=== PATIENT | female | born 1940 | race Caucasian/White ===

== ENCOUNTER 2020-04-14 08:33 | Outpatient (REF) | payer MEDICARE, OTHER, SELFPAY ==
--- NOTE | 2020-04-14 08:36 | XR_ITS ---
EXAMINATION: XR SHOULDER, RIGHT CLINICAL INFORMATION: Pain and right shoulder. COMPARISON: None. TECHNIQUE: 3 views of the right shoulder. FINDINGS: There is mild loss of glenohumeral and AC joint space. No bony erosive changes seen. There is mild cephalic migration of humeral head in relation to glenoid suspicious of rotator cuff tear or degeneration. The soft tissues are normal. XR/XR shoulder RT min 2V IMPRESSION: Degenerative arthritic changes glenohumeral joint and right AC joint. No visible acute fracture or dislocation seen. Cephalic migration of humeral head in relation to glenoid likely secondary to rotator cuff degeneration or tear.
== END 2020-04-14 08:34 | disposition home or self-care (01) ==
LOC: HO.HOSX 08:33
PROVIDERS: PCP Internal Medicine; Referring Provider Internal Medicine; Visit Provider Orthopaedic Surgery
DX: Z13.89 Encounter for screening for other disorder (principal)
CPT/HCPCS: 73030; 99212

== ENCOUNTER 2020-04-14 10:20 | Outpatient (REF) | payer MEDICARE, OTHER, SELFPAY ==
[2020-04-14 14:56] LABS: Estimated Average Glucose 169 mg/dL; Hemoglobin A1c % 7.5 %
== END 2020-04-14 10:21 | disposition home or self-care (01) ==
LOC: HO.10HDL 10:20
PROVIDERS: Visit Provider Orthopaedic Surgery
DX: Z01.812 Encounter for preprocedural laboratory examination (principal)
CPT/HCPCS: 73030; 83036; 99212

== ENCOUNTER 2020-05-16 09:32 | Outpatient (REF) | payer MEDICARE, OTHER, SELFPAY ==
--- NOTE | 2020-05-16 09:34 | CT_ITS ---
EXAMINATION: CT SHOULDER WITHOUT CONTRAST, RIGHT CLINICAL INFORMATION: Right shoulder pain. Other specific arthropathy, not elsewhere classified, unspecified. COMPARISON: Radiographs of the shoulder from 08/11/2018 and 04/14/2020. TECHNIQUE: Noncontrast multidetector CT imaging examination of the right shoulder was performed. Axial images are presented at 0.6 mm and 3 mm slice thickness. Coronal and sagittal reformatted images were generated and reviewed. This CT examination was performed using dose optimization techniques as appropriate, variously including the following: *Automated exposure control *Adjustment of mA and/or kV according to patient size (this includes techniques or standardized protocols for targeted exams where dose is matched to indication/reason for exam; i.e. extremities or head) *Use of iterative reconstruction technique DLP: 355 mGy-cm FINDINGS: The distal right clavicle chronically has a truncated appearance. Also, there is chronic flattening along the undersurface of the adjacent acromion. Query if there is remote history of Pawan procedure and acromioplasty. There appears to be an old type B os acromiale, which is well-corticated, and has adjacent small well-corticated fragment, as well. No acromial fracture. The cystlike lucency within the acromion and os acromiale is likely secondary to chronic abutment of the humeral head along the undersurface of the acromion. The flattening and concavity of the acromial undersurface could be secondary to prior surgery and/or chronic acromiohumeral abutment, as well. On these images acquired with the patient at rest, the acromiohumeral distance is abnormal, measuring less than 0.4 cm laterally, indicative of chronic rotator cuff tear. On the axial images, the humeral head appears to be well centered over the glenoid whereas on coronal images, superior migration of the humeral head is noted from the chronic deficiency of the rotator cuff. No humeral or glenoid fracture. Small glenohumeral joint effusion is present. Calcium deposition (likely calcium pyrophosphate dihydrate crystal deposition) within the glenohumeral joint. Marginal osteophytes and subchondral cysts of the glenohumeral joint. The long head of the biceps tendon appears to be properly positioned in the bicipital groove. Severe atrophy and fatty replacement of subscapularis, supraspinatus and infraspinatus muscles, compatible with sequela of chronic cuff tears and disuse of muscles. The myotendinous junctions of the supraspinatus and infraspinatus are at least 2 cm more lateral in position than expected, indicative of chronically retracted cuff tears. The visualized right lung is normal. No evidence of right breast mass or right axillary lymphadenopathy. CT/CT shoulder RT wo con IMPRESSION: * No acute osseous injury at the right shoulder. * The distal right clavicle is truncated, and acromion has a relatively flat and concave undersurface. Query if there is remote history of Pawan procedure and acromioplasty. Alternatively, the deformities could be secondary to chronic, massive rotator cuff tear with chronic abutment of the humeral head along the undersurface of the bones. The chronic cuff tears are associated with severe atrophy and fatty replacement of rotator cuff muscles. * Calcium deposition (likely calcium pyrophosphate dihydrate crystal deposition) and small effusion of the moderately degenerated glenohumeral joint.
== END 2020-05-16 09:33 | disposition home or self-care (01) ==
LOC: HO.CT 09:32
PROVIDERS: PCP Internal Medicine; Visit Provider Physician Assistant
DX: M12.819 Other specific arthropathies, not elsewhere classified, unspecified shoulder (principal)
CPT/HCPCS: 73200

== ENCOUNTER → 2020-06-30 12:30 | Outpatient (BNVA) | payer MEDICARE, OTHER, SELFPAY | PROVIDERS: PCP Internal Medicine; Visit Provider Physician Assistant | DX: M12.819 Other specific arthropathies, not elsewhere classified, unspecified shoulder (principal) | CPT/HCPCS: 99212 ==

== ENCOUNTER 2020-07-05 08:03 | Inpatient (IN) | payer MEDICARE, OTHER, SELFPAY ==
--- NOTE | 2020-06-20 | ECG_ITS ---
Test Reason : PREOP Blood Pressure : / mmHG Vent. Rate : 078 BPM Atrial Rate : 078 BPM P-R Int : 158 ms QRS Dur : 070 ms QT Int : 372 ms P-R-T Axes : 054 -04 047 degrees QTc Int : 424 ms Normal sinus rhythm Inferior infarct , age undetermined Abnormal ECG When compared with ECG of 08-SEP-2018 10:47, No significant change was found Referred By: Claudia Marrero Electronically Signed By:Matti Poole
[2020-06-20 11:57] VITALS: BP 123/60; PULSE 80; RESP 18; O2SAT 97; BMI 27.1
--- NOTE | 2020-06-20 12:19 | P.CONAN_ITS ---
HPI - Anesthesia Eval Consult details Narrative: 80yo F for R Total Shoulder Repair PCP cleared Cardiac cleared [facility] Past Medical History Medical History (Updated 06/20/20 @ 12:17 by Sara Odonnell) Arthritis Cancer Diabetes Elevated cholesterol GERD (gastroesophageal reflux disease) History of restless legs syndrome HTN (hypertension) Hx of radiation therapy Right shoulder pain Rotator cuff arthropathy Sleep apnea Type 2 diabetes mellitus Family History Family History Mother No problems noted. Father No problems noted. Family history of problems with anesthesia: No Surgical History Surgical History (Updated 06/20/20 @ 12:17 by Sara Odonnell) H/O colonoscopy History of prior ablation treatment History of total knee replacement (~2006) Hx of breast lump removal Hx of foot surgery Hx of knee surgery Hx of rotator cuff surgery Hx of tonsillectomy Hx of total shoulder replacement Status post total shoulder arthroplasty History of Problems with Anesthesia: No Social History Social History (Updated 06/20/20 @ 12:43 by Sara Odonnell) Alcohol intake: never Smoking Status: Former smoker Packs Per Day: 1 Cigarettes Per Day: 20.0 Years Smoked: 25 Current occupational status: retired Current occupation: Right Handed Narrative Narrative: No recent ilness No CP/SOB with >4mets Per cardiac ov note 04/2020: pt stable, no anginal symptoms with remaining active Meds Allergies Allergy/AdvReac Type Severity Reaction Status Date / Time lisinopril [LISINOPRIL] Allergy Severe ANGIOEDEMA Verified 06/20/20 12:31 codeine [CODEINE] Allergy Intermediate ITCHY Verified 06/20/20 12:31 hydromorphone [HYDROMORPHONE] Allergy Intermediate ITCHING Verified 06/20/20 12: 31 oxycodone [OXYCODONE] Allergy Intermediate ITCHING Verified 06/20/20 12:31 propoxyphene [PROPOXYPHENE] Allergy Intermediate ITCHING Verified 06/20/20 12:31 sulfamethoxazole Allergy Intermediate RENAL Verified 06/20/20 12:31 [From BACTRIM] INSUFFICIENCY trimethoprim [From BACTRIM] Allergy Intermediate RENAL Verified 06/20/20 12:31 INSUFFICIENCY Propoxyphene HCl Allergy Intermediate Itching Uncoded 06/20/20 12:31 Home Medications Medication Instructions Recorded Confirmed Type acebutolol 200 mg capsule 200 mg PO QAM 03/16/20 06/20/20 History chlorthalidone 25 mg tablet 25 mg PO QAM 03/16/20 06/20/20 History famotidine 40 mg tablet 40 mg PO BEDTIME 03/16/20 06/20/20 History gabapentin 300 mg capsule 600 mg PO TID 03/16/20 06/20/20 History glipizide 5 mg tablet, extended 5 mg PO QAM 03/16/20 06/20/20 History release 24 hr metformin 500 mg tablet,extended 1,000 mg PO BID 03/16/20 06/20/20 History release 24 hr omeprazole 20 mg capsule,delayed 20 mg PO BID 03/16/20 06/20/20 History release ropinirole 1 mg tablet 1 mg PO 5XD 03/16/20 06/20/20 History trazodone 50 mg tablet 75 mg PO BEDTIME 03/16/20 06/20/20 History calcium carbonate-vitamin D2 1 tab PO DAILY 06/20/20 06/20/20 History [Calcium + Vitamin D] cholecalciferol (vitamin D3) 25 mcg PO DAILY 06/20/20 06/20/20 History [Vitamin D3] magnesium 400 mg PO DAILY 06/20/20 06/20/20 History multivitamin-iron (hematinic) 1 tab PO DAILY 06/20/20 06/20/20 History [Spectravite] triamcinolone acetonide 1 appl TOPICAL BID PRN 06/20/20 06/20/20 History Exam Exam Date and Time: June 20, 2020 1219 Pertinent Lab Results Pertinent Lab Results: Laboratory Tests 04/14/20 10:30 Hemoglobin A1c % 7.5 Laboratory Tests 06/20/20 06/20/20 06/20/20 13:25 13:25 13:25 WBC 8.7 Hgb 12.9 Hct 41.4 Plt Count 305 Sodium 139 Potassium 4.2 Chloride 98 Carbon Dioxide 26 Anion Gap 19 BUN 27 H Creatinine 1.13 Blood Type A Positive Antibody Screen NEGATIVE Narrative Narrative: EKG 06/20/20 Normal sinus rhythm Inferior infarct , age undetermined Abnormal ECG When compared with ECG of 08-SEP-2018 10:47, No significant change was found ECHO 2018 per Cardiac note: Nml LV sys function, mild DD, mild asymetrical basal septal hypertrophy, 1.2cm; mild pulm htn at 30-35mmHg Airway Neck ROM: Full Loose/Missing/Broken Teeth: Yes (Molars pulled) Heart: RRR +M, Lungs: CTAB Assessment and Plan Assessment Anesthesia Assessment: Anesthesia Plan Discussed and PAT Visit
[2020-06-20 13:57] LABS: MANUAL DIFF FLAG NO
[2020-06-20 13:59] LABS: Basophils Percent Auto 0.3 % (0-2); Eosinophils Absolute Auto 0.1 X10*3/uL (0.0-0.4); Eosinophils Percent Auto 1.6 % (0-4); Hematocrit 41.4 % (37-47); Hemoglobin 12.9 g/dl (12.0-16.0); Imm Gran Abs Auto 0.03 X10*3/uL (0.00-0.03); Imm Gran Pct Auto 0.3 % (0.0-0.4); Lymphocytes Absolute Auto 1.8 X10*3/uL (1.2-4.9); Lymphocytes Percent Auto 20.4 % (20-40); Mean Corpuscular HGB Conc 31.2 g/dl (31.0-35.0); Mean Platelet Volume 10.2 fL (9.4-12.3); Monocytes Absolute Auto 0.5 X10*3/uL (0.1-1.2); Neutrophils Absolute Auto 6.2 X10*3/uL (2.0-8.3); Neutrophils Percent Auto 71.4 % (45-73); Platelet Count 305 X10*3/uL (160-400); Red Cell Distribution Width 13.2 % (11.0-16.0); White Blood Count 8.7 X10*3/uL (4.8-10.8)
[2020-06-20 14:29] LABS: Anion Gap 19 (12-20); Blood Urea Nitrogen 27 mg/dL (9-16); Carbon Dioxide 26 mmol/L (22-29); Chloride 98 mmol/L (96-108); Creatinine Clr Calc Pharmacy 39.3; Estimated Glomerular Filt Rate 46; Potassium 4.2 mmol/l (3.3-5.1); Sodium 139 mmol/L (135-145)
[2020-06-20 15:08] LABS: MRSA Nasal PCR NEGATIVE (Negative); SA Nasal PCR POSITIVE (Negative)
--- NOTE | 2020-07-04 13:17 | HO.ANESPROP2 ---
Documented by User: Ruth Ann Minaney 07/04/20 13:20 HPI - Anesthesia Eval Consult details Narrative: 80yo F for R Total Shoulder Repair PCP cleared Cardiac cleared [facility] Past Medical History Medical History Arthritis Cancer Diabetes Elevated cholesterol GERD (gastroesophageal reflux disease) History of restless legs syndrome HTN (hypertension) Hx of radiation therapy Right shoulder pain Rotator cuff arthropathy Sleep apnea Type 2 diabetes mellitus Family History Family History Mother No problems noted. Father No problems noted. Surgical History Surgical History H/O colonoscopy History of prior ablation treatment History of total knee replacement (~2006) Hx of breast lump removal Hx of foot surgery Hx of knee surgery Hx of rotator cuff surgery Hx of tonsillectomy Hx of total shoulder replacement Status post total shoulder arthroplasty Social History Social History Are you a primary youth care specialist to a significant other at home: No Do you presently have visiting nurse or other home services: No Alcohol intake: never Smoking Status: Former smoker Packs Per Day: 1 Cigarettes Per Day: 20.0 Years Smoked: 25 Smoked in Last 30 Days: No Smoking Quit Date: 1988 Use of substances other than those prescribed or required for medical reasons: No Have you been hit, kicked, punched, or otherwise hurt by someone within the past year? If so, by whom?: No Advance Directives Information Provided: No Recently lost weight without trying: No Current occupational status: retired Current occupation: Right Handed Narrative Narrative: No recent ilness No CP/SOB with >4mets Per cardiac ov note 04/2020: pt stable, no anginal symptoms with remaining active Meds Allergies Allergy/AdvReac Type Severity Reaction Status Date / Time lisinopril [LISINOPRIL] Allergy Severe ANGIOEDEMA Verified 07/05/20 06:52 codeine [CODEINE] Allergy Intermediate ITCHY Verified 07/05/20 06:52 hydromorphone [HYDROMORPHONE] Allergy Intermediate ITCHING Verified 07/05/20 06:52 oxycodone [OXYCODONE] Allergy Intermediate ITCHING Verified 07/05/20 06:52 propoxyphene [PROPOXYPHENE] Allergy Intermediate ITCHING Verified 07/05/20 06:52 sulfamethoxazole Allergy Intermediate RENAL Verified 07/05/20 06:52 [From BACTRIM] INSUFFICIENCY trimethoprim [From BACTRIM] Allergy Intermediate RENAL Verified 07/05/20 06:52 INSUFFICIENCY Propoxyphene HCl Allergy Intermediate Itching Uncoded 06/20/20 12:31 Home Medications Medication Instructions Recorded Confirmed Type acebutolol 200 mg capsule 200 mg PO QAM 03/16/20 06/20/20 History chlorthalidone 25 mg tablet 25 mg PO QAM 03/16/20 06/20/20 History famotidine 40 mg tablet 40 mg PO BEDTIME 03/16/20 06/20/20 History gabapentin 300 mg capsule 600 mg PO TID 03/16/20 06/20/20 History glipizide 5 mg tablet, extended 5 mg PO QAM 03/16/20 06/20/20 History release 24 hr metformin 500 mg tablet,extended 500 mg PO QAM 03/16/20 07/05/20 History release 24 hr omeprazole 20 mg capsule,delayed 20 mg PO BID 03/16/20 06/20/20 History release ropinirole 1 mg tablet 1 mg PO 5XD 03/16/20 06/20/20 History trazodone 50 mg tablet 75 mg PO BEDTIME 03/16/20 06/20/20 History cholecalciferol (vitamin D3) 25 mcg PO DAILY 06/20/20 06/20/20 History [Vitamin D3] magnesium 400 mg PO DAILY 06/20/20 06/20/20 History multivitamin-iron (hematinic) 1 tab PO DAILY 06/20/20 06/20/20 History [Spectravite] triamcinolone acetonide 1 appl TOPICAL BID PRN 06/20/20 06/20/20 History calcium carbonate-vitamin D3 1 tab PO DAILY 07/05/20 07/05/20 History [Calcium + D] metformin 1,000 mg PO QPM 07/05/20 07/05/20 History Exam Exam Date and Time: 06/20/2020 at [facility] Height,Weight and Vital Signs: Height 5 ft 5 in Weight 74 kg Last Vital Signs Pulse 80 06/20/20 11:57 Resp 18 06/20/20 11:57 BP 123/60 06/20/20 11:57 Pulse Ox 97 06/20/20 11:57 Pertinent Lab Results Pertinent Lab Results: Laboratory Tests 06/20/20 06/20/20 06/20/20 12:45 13:25 13:25 WBC 8.7 RBC 4.60 Hgb 12.9 Hct 41.4 MCV 90.0 MCH 28.0 MCHC 31.2 RDW 13.2 Plt Count 305 MPV 10.2 Immature Gran % (Auto) 0.3 Neut % (Auto) 71.4 Lymph % (Auto) 20.4 [place] % (Auto) 6.0 Eos % (Auto) 1.6 Baso % (Auto) 0.3 Lymph # (Auto) 1.8 [place] # (Auto) 0.5 Eos # (Auto) 0.1 Baso # (Auto) 0.0 Abs Immat Gran (auto) 0.03 Absolute Neuts (auto) 6.2 Absolute Nucleated RBC 0.000 Nucleated RBC % (auto) 0.0 Sodium 139 Potassium 4.2 Chloride 98 Carbon Dioxide 26 Anion Gap 19 BUN 27 H Creatinine 1.13 Estim Creat Clear Calc 39.3 Estimated GFR 46 Nasal Screen MRSA (PCR) NEGATIVE Nasal S. aureus Screen POSITIVE A Nasal MRSA/S.aureus Interp SEE NOTE Blood Type Antibody Screen 06/20/20 13:25 WBC RBC Hgb Hct MCV MCH MCHC RDW Plt Count MPV Immature Gran % (Auto) Neut % (Auto) Lymph % (Auto) [place] % (Auto) Eos % (Auto) Baso % (Auto) Lymph # (Auto) [place] # (Auto) Eos # (Auto) Baso # (Auto) Abs Immat Gran (auto) Absolute Neuts (auto) Absolute Nucleated RBC Nucleated RBC % (auto) Sodium Potassium Chloride Carbon Dioxide Anion Gap BUN Creatinine Estim Creat Clear Calc Estimated GFR Nasal Screen MRSA (PCR) Nasal S. aureus Screen Nasal MRSA/S.aureus Interp Blood Type A Positive Antibody Screen NEGATIVE Narrative Narrative: EKG 06/20/20 Normal sinus rhythm Inferior infarct , age undetermined Abnormal ECG When compared with ECG of 08-SEP-2018 10:47, No significant change was found ECHO 2018 per Cardiac note: Nml LV sys function, mild DD, mild asymetrical basal septal hypertrophy, 1.2cm; mild pulm htn at 30-35mmHg Airway Neck ROM: Full Loose/Missing/Broken Teeth: Yes (molars pulled) Heart: RRR +M Lungs: CTAB Assessment and Plan Assessment Anesthesia Assessment: Anesthesia Plan Discussed and PAT Visit Documented by User: Ellis Castro MD 07/05/20 10:21 [facility] Past Medical History Medical History Arthritis Cancer Diabetes Elevated cholesterol GERD (gastroesophageal reflux disease) History of restless legs syndrome HTN (hypertension) Hx of radiation therapy Right shoulder pain Rotator cuff arthropathy Sleep apnea Type 2 diabetes mellitus Family History Family History Mother No problems noted. Father No problems noted. Surgical History Surgical History H/O colonoscopy History of prior ablation treatment History of total knee replacement (~2006) Hx of breast lump removal Hx of foot surgery Hx of knee surgery Hx of rotator cuff surgery Hx of tonsillectomy Hx of total shoulder replacement Status post total shoulder arthroplasty Social History Social History Are you a primary youth care specialist to a significant other at home: No Do you presently have visiting nurse or other home services: No Alcohol intake: never Smoking Status: Former smoker Packs Per Day: 1 Cigarettes Per Day: 20.0 Years Smoked: 25 Smoked in Last 30 Days: No Smoking Quit Date: 1988 Use of substances other than those prescribed or required for medical reasons: No Have you been hit, kicked, punched, or otherwise hurt by someone within the past year? If so, by whom?: No Advance Directives Information Provided: No Recently lost weight without trying: No Current occupational status: retired Current occupation: Right Handed Meds Allergies Allergy/AdvReac Type Severity Reaction Status Date / Time lisinopril [LISINOPRIL] Allergy Severe ANGIOEDEMA Verified 07/05/20 06:52 codeine [CODEINE] Allergy Intermediate ITCHY Verified 07/05/20 06:52 hydromorphone [HYDROMORPHONE] Allergy Intermediate ITCHING Verified 07/05/20 06:52 oxycodone [OXYCODONE] Allergy Intermediate ITCHING Verified 07/05/20 06:52 propoxyphene [PROPOXYPHENE] Allergy Intermediate ITCHING Verified 07/05/20 06:52 sulfamethoxazole Allergy Intermediate RENAL Verified 07/05/20 06:52 [From BACTRIM] INSUFFICIENCY trimethoprim [From BACTRIM] Allergy Intermediate RENAL Verified 07/05/20 06:52 INSUFFICIENCY Propoxyphene HCl Allergy Intermediate Itching Uncoded 06/20/20 12:31 Home Medications Medication Instructions Recorded Confirmed Type acebutolol 200 mg capsule 200 mg PO QAM 03/16/20 06/20/20 History chlorthalidone 25 mg tablet 25 mg PO QAM 03/16/20 06/20/20 History famotidine 40 mg tablet 40 mg PO BEDTIME 03/16/20 06/20/20 History gabapentin 300 mg capsule 600 mg PO TID 03/16/20 06/20/20 History glipizide 5 mg tablet, extended 5 mg PO QAM 03/16/20 06/20/20 History release 24 hr metformin 500 mg tablet,extended 500 mg PO QAM 03/16/20 07/05/20 History release 24 hr omeprazole 20 mg capsule,delayed 20 mg PO BID 03/16/20 06/20/20 History release ropinirole 1 mg tablet 1 mg PO 5XD 03/16/20 06/20/20 History trazodone 50 mg tablet 75 mg PO BEDTIME 03/16/20 06/20/20 History cholecalciferol (vitamin D3) 25 mcg PO DAILY 06/20/20 06/20/20 History [Vitamin D3] magnesium 400 mg PO DAILY 06/20/20 06/20/20 History multivitamin-iron (hematinic) 1 tab PO DAILY 06/20/20 06/20/20 History [Spectravite] triamcinolone acetonide 1 appl TOPICAL BID PRN 06/20/20 06/20/20 History calcium carbonate-vitamin D3 1 tab PO DAILY 07/05/20 07/05/20 History [Calcium + D] metformin 1,000 mg PO QPM 07/05/20 07/05/20 History Exam Airway Mallampati Class: III TM Dist: >3cm Neck ROM: Full Loose/Missing/Broken Teeth: No Heart: RRR, PVCs Lungs: NL Other: AO Assessment and Plan Assessment Anesthesia Assessment: Anesthesia Plan Discussed and Chart Reviewed Final Anesthetic Review NPO: Yes ASA Class: III Final Preanesthetic Review: No Changes in Pt Med Stat, Meds/Allgs Chart Reviewed, Consent Obtained/Reviewed and Anes Risks/Benef Reviewed Patient Risk: Intermediate Procedure Risk: Intermediate Anesthetic Plan Anesthetic Plan: GA and Regional Block Disposition: Standard PACU
[2020-07-05] VITALS (15 sets, daily range): BP systolic 119–157; BP diastolic 61–93; PULSE 71–100; RESP 16–19; TEMP 36.2–37.1; O2SAT 90–99
[2020-07-05] MEDS: Gabapentin 600 MG TABLET PO (06:26)
[2020-07-05 06:49] LABS: COVID-19 Test Negative (Negative)
[2020-07-05] MEDS: Lactated Ringers 1,000 ML 100 ML IVCONT (07:10)
[2020-07-05] MEDS: ceFAZolin Sodium/Dextrose,Iso 2 GM/50 ML PIGGYBACK IV ×2 (08:05→13:35)
[2020-07-05 08:26] LABS: Glucose, Whole Blood 179 mg/dL (60-115)
--- NOTE | 2020-07-05 09:55 | MHC.SHP ---
Pre-Procedural Eval Section A The patient is an INPATIENT: No Changes since office visit: Yes Patient answered all questions; No Cold of Flu in the past 2 weeks, No New Medical Problems and No Changes in Medication The History & Physical has been completed within 30 days and I have reviewed it.: Yes Section B Chief Complaint: right total shoulder arthroplasty Allergies: Allergies Allergy/AdvReac Type Severity Reaction Status Date / Time lisinopril [LISINOPRIL] Allergy Severe ANGIOEDEMA Verified 07/05/20 06:52 codeine [CODEINE] Allergy Intermediate ITCHY Verified 07/05/20 06:52 hydromorphone [HYDROMORPHONE] Allergy Intermediate ITCHING Verified 07/05/20 06:52 oxycodone [OXYCODONE] Allergy Intermediate ITCHING Verified 07/05/20 06:52 propoxyphene [PROPOXYPHENE] Allergy Intermediate ITCHING Verified 07/05/20 06:52 sulfamethoxazole Allergy Intermediate RENAL Verified 07/05/20 06:52 [From BACTRIM] INSUFFICIENCY trimethoprim [From BACTRIM] Allergy Intermediate RENAL Verified 07/05/20 06:52 INSUFFICIENCY Propoxyphene HCl Allergy Intermediate Itching Uncoded 06/20/20 12:31 Plan I have reviewed the history and physical and performed a pertinent physical examination on my patient. No changes have occurred unless specified.
--- NOTE | 2020-07-05 09:55 | PM.OP ---
Brief Operative Note Date of Service: 07/05/20 Pre-op diagnosis: right shoulder rtc arthropathy Post-op diagnosis: same Procedure: reverse TSA right shoulder Implants: Tournier 25 mm baseplate with 15deg sup wedge and standard 36 mm glenosphere. 2B standard humeral stem with standard reversed insert- 6mm Surgeon: Brady Zazueta MD Anesthesia: GETA and local Data Sciences Director: Claudia Marrero Estimated blood loss (mL): 150 Tourniquet time (min): 0 IV fluids (mL): 1,500 Urine output (mL): 0 Pathology: other (humeral head) Condition: stable Disposition: PACU
--- NOTE | 2020-07-05 11:26 | P.CONIM_ITS ---
History of Present Illness Data of Consult Service Date: 07/05/20 Requesting physician: Brady Zazueta Primary Care Provider: Rudy Hinkle MD [facility] Reason for consult: Medical Management 80 year old women with history of diabetes, hypertension admitted to orthopedic surgery service and is status post shoulder arthroplasty. Surgery was unremarkable, Vital signs stable. Pain is welll controlled. She has no acute medical complaints Review of Systems Review of Systems: Denies any recent fever chills or decrease in appetite respiratory denies any shortness of breath coverage production cardiovascular NO chest pain gastrointestinal denies any dysphagia abdominal pain nausea vomiting or diarr hea genitourinary denies any dysuria frequency or hematuria musculoskeletal Right shoulder post op neuropsych denies any weakness or seizures all other systems reviewed are negative [facility] Medical History Arthritis Cancer Diabetes Elevated cholesterol GERD (gastroesophageal reflux disease) History of restless legs syndrome HTN (hypertension) Hx of radiation therapy Right shoulder pain Rotator cuff arthropathy Sleep apnea Type 2 diabetes mellitus Family History Mother No problems noted. Father No problems noted. Surgical History H/O colonoscopy History of prior ablation treatment History of total knee replacement (~2006) Hx of breast lump removal Hx of foot surgery Hx of knee surgery Hx of rotator cuff surgery Hx of tonsillectomy Hx of total shoulder replacement Status post total shoulder arthroplasty Social History Are you a primary caregiver services home to a significant other at home: No Do you presently have visiting nurse or other home services: No Alcohol intake: never Smoking Status: Former smoker Packs Per Day: 1 Cigarettes Per Day: 20.0 Years Smoked: 25 Smoked in Last 30 Days: No Smoking Quit Date: 1988 Use of substances other than those prescribed or required for medical reasons: No Have you been hit, kicked, punched, or otherwise hurt by someone within the past year? If so, by whom?: No Advance Directives Information Provided: No Recently lost weight without trying: No Current occupational status: retired Current occupation: Right Handed Meds Allergies Allergy/AdvReac Type Severity Reaction Status Date / Time lisinopril [LISINOPRIL] Allergy Severe ANGIOEDEMA Verified 07/05/20 06:52 codeine [CODEINE] Allergy Intermediate ITCHY Verified 07/05/20 06:52 hydromorphone [HYDROMORPHONE] Allergy Intermediate ITCHING Verified 07/05/20 06:52 oxycodone [OXYCODONE] Allergy Intermediate ITCHING Verified 07/05/20 06:52 propoxyphene [PROPOXYPHENE] Allergy Intermediate ITCHING Verified 07/05/20 06:52 sulfamethoxazole Allergy Intermediate RENAL Verified 07/05/20 06:52 [From BACTRIM] INSUFFICIENCY trimethoprim [From BACTRIM] Allergy Intermediate RENAL Verified 07/05/20 06:52 INSUFFICIENCY Propoxyphene HCl Allergy Intermediate Itching Uncoded 06/20/20 12:31 Home Medications Medication Instructions Recorded Confirmed Type acebutolol 200 mg capsule 200 mg PO QAM 03/16/20 06/20/20 History chlorthalidone 25 mg tablet 25 mg PO QAM 03/16/20 06/20/20 History famotidine 40 mg tablet 40 mg PO BEDTIME 03/16/20 06/20/20 History gabapentin 300 mg capsule 600 mg PO TID 03/16/20 06/20/20 History glipizide 5 mg tablet, extended 5 mg PO QAM 03/16/20 06/20/20 History release 24 hr metformin 500 mg tablet,extended 500 mg PO QAM 03/16/20 07/05/20 History release 24 hr omeprazole 20 mg capsule,delayed 20 mg PO BID 03/16/20 06/20/20 History release ropinirole 1 mg tablet 1 mg PO 5XD 03/16/20 06/20/20 History trazodone 50 mg tablet 75 mg PO BEDTIME 03/16/20 06/20/20 History cholecalciferol (vitamin D3) 25 mcg PO DAILY 06/20/20 06/20/20 History [Vitamin D3] magnesium 400 mg PO DAILY 06/20/20 06/20/20 History multivitamin-iron (hematinic) 1 tab PO DAILY 06/20/20 06/20/20 History [Spectravite] triamcinolone acetonide 1 appl TOPICAL BID PRN 06/20/20 06/20/20 History calcium carbonate-vitamin D3 1 tab PO DAILY 07/05/20 07/05/20 History [Calcium + D] metformin 1,000 mg PO QPM 07/05/20 07/05/20 History Physical Exam Vital Signs and Narrative: Vital Signs: Last Vital Signs Temp 97.2 F 07/05/20 10:56 Pulse 76 07/05/20 11:12 Resp 16 07/05/20 11:12 BP 136/67 07/05/20 11:12 Pulse Ox 98 07/05/20 11:12 Body Mass Index 27.1 Appearing in no acute distress head is normocephalic atraumatic eyes pupils are PERRLA sclera is anicteric mouth throat mucous membranes are intact and moist neck is supple no lymphadenopathy, no JVD noted lung sounds are clear to auscultation heart regular rate rhythm, clear S1, S2 positive bowel sounds, abdomen is soft, nontender neuro patient is alert x3, no focal deficits MSK Right shoulder brace, dressing clean, dry and intact Results Labs CBC and Chem 7: 06/20/20 13:25 06/20/20 13:25 Labs: Laboratory Results - last 24 hr 07/05/20 07/05/20 06:00 06:23 POC Glucose 179 H COVID-19 (ELIGIO) Negative COVID-19 Clin Com See Note Assessment and Plan (1) Rotator cuff arthropathy: Status: Acute 80-year-old woman admitted by Orthopedic surgery team and is status post right shoulder arthroplasty. Right shoulder arthroplasty. Management as per surgical team. Pain management. Diabetes mellitus, sliding scale, ADA diet, glipizise Hypertention. Continue Home medications. Follow CHRISTOPHE post-operative. GERD. PPI. DVT prophylaxis as per surgical team. Discussed with Dr. Bullock Full code
[2020-07-05 16:56] LABS: Glucose, Whole Blood 214 mg/dL (60-115)
[2020-07-05] MEDS: Insulin Lispro 100 UNIT/ML 3 ML VIAL SUBCUT (17:02)
[2020-07-05] MEDS: glipiZIDE XL 5 MG TAB.ER.24 PO (17:03)
[2020-07-05] MEDS: rOPINIRole HCL 1 MG TABLET PO ×3 (17:03→23:05)
[2020-07-05] MEDS: Sodium Chloride 0.45 % 1,000 ML 80 ML IVCONT (17:06)
[2020-07-05] MEDS: 0.9 % Sodium Chloride Flush 3 ML SYRINGE IVFLUSH (17:09)
[2020-07-05] MEDS: oxyCODONE HCl Immed Release 5 MG TABLET PO ×2 (17:24→23:02)
--- NOTE | 2020-07-05 17:52 | PM.EVENT ---
Event Note Date of Service: 07/06/20 Event Note: This patient is seen and examined with APC. Status post arm surgeries, says says that feeling better denies any chest pain or shortness of breath or abdominal pain or fever chills Lab imaging reviewed. Physical exam : Cvs: rrr, [id number] , no murmur res: clear to auscultation ,no rhonchii or wheezing abd: no rebound or guarding ,nt, bs present. ext pulses present , no cyanosis , has a right arm sling neuro: axo3 , nonfocal. assessment and plan coordinated in APCs note, Agree with the plan.
[2020-07-05] MEDS: Famotidine 20 MG TABLET 40 MG PO (21:42)
[2020-07-05] MEDS: Celecoxib 200 MG CAPSULE PO (21:42)
[2020-07-05] MEDS: Omeprazole 20 MG CAPSULE.DR PO (21:42)
[2020-07-05] MEDS: Gabapentin 300 MG CAPSULE 600 MG PO (21:43)
[2020-07-05] MEDS: traZODone HCL 25 MG HALFTAB 75 MG PO (21:43)
[2020-07-05 21:44] LABS: Glucose, Whole Blood 134 mg/dL (60-115)
--- NOTE | 2020-07-05 22:52 | OP_ITS ---
SURGEON: Brady Zazueta MD INDICATIONS: This is an 80-year-old female with the right rotator cuff arthropathy. Consented to undergo total shoulder arthroplasty. PREOPERATIVE DIAGNOSIS: Right shoulder rotator cuff arthropathy. POSTOPERATIVE DIAGNOSIS: Right shoulder rotator cuff arthropathy. PROCEDURE PERFORMED: Reverse total shoulder on the right. ESTIMATED BLOOD LOSS: 150 mL. COMPLICATIONS: None. ANESTHESIA: General and regional. ASSISTANTS: SPECIMENS: FLUIDS: 1500. PROCEDURE IN DETAIL: The patient was brought into the operating room, placed in a beach chair position. All bony prominences were well padded. She was prepped and draped in standard sterile fashion. Time-out was called to identify proper site, proper procedure, proper surgeon. IV antibiotics per weight was administered. I began by making a standard deltopectoral incision and identified diminutive cephalic vein. A digital separation was used to exploit the deltopectoral interval and the fascia overlying the biceps and subscapularis was identified. The were identified, cauterized, and a full-thickness arthrotomy of the capsule and the subscapularis was performed, and the humeral head was dislocated. The head cut was made in line with the natural inclination of the head and this was removed. I reamed to a 2 and a provisional humeral stem was placed with a protective cover and I turned my attention to the glenoid. Anterior, posterior, and superior glenoid retractors were used and a complete labrectomy was performed. A 15 mm superior wedge was chosen because of her superior inclination of approximately [address] imaging. I drilled my central guidewire. I then over drilled this with a hard stop reamer and then drilled bicortically into the glenoid vault. I circumferentially reamed down to bleeding bone. I then measured 30 mm screw and this was placed through my standard 25 mm base plate with 15 degree superior wedge. After copious irrigation, this implant was placed and I had excellent compression of the base plate. Once this was done, I drilled an inferior knot and posterior locking screw and a superior bicortical nonlocking screw. These were all placed using standard AO technique and without complication. The anterior hole was insufficient bone to hold the screw. I then placed a provisional standard 36 mm glenosphere and turned my attention to the humerus. Using the standard 2B humeral stem, I placed a standard reversed insert of 6 mm and located the shoulder. She had excellent stability. It was very difficult to dislocate again and excellent range of motion. No obvious impingement with external rotation and abduction. She was stable at all ranges tested. Once this was done, I removed all instrumentation and placed my final glenosphere and then returned to the humerus and placed my final 2B implant with a standard 6 mm insert. The shoulder was reduced and was very happy with the stability and the range. Copious irrigation was performed. The capsular closure was impossible given the preoperative tightness and subscapularis closure was also not possible. After copious irrigation, I performed a layered closure with lisa on the skin. The patient was placed in sterile dressing and an abduction sling, extubated and brought to recovery room in stable condition. There were no known complications. IMPLANTS: A 25 mm base plate with 15 degree superior wedge and a standard 36 mm glenosphere, 2B standard humeral stem with standard reversed insert 6 mm. BORDER PATROL AGENT: PIERRE Mares and PIERRE Judge. MD SIMIN Lomeli/TEOFILO / [id number]
[2020-07-06 03:30] VITALS: BP 110/56; PULSE 85; RESP 20; TEMP 36.4; O2SAT 91
[2020-07-06] MEDS: Sodium Chloride 0.45 % 1,000 ML 80 ML IVCONT (05:12)
[2020-07-06] MEDS: oxyCODONE HCl Immed Release 5 MG TABLET PO ×2 (05:14→11:31)
[2020-07-06 06:28] LABS: MANUAL DIFF FLAG NO
[2020-07-06 06:41] LABS: Basophils Percent Auto 0.2 % (0-2); Eosinophils Absolute Auto 0.1 X10*3/uL (0.0-0.4); Eosinophils Percent Auto 0.6 % (0-4); Hematocrit 35.5 % (37-47); Imm Gran Abs Auto 0.03 X10*3/uL (0.00-0.03); Imm Gran Pct Auto 0.4 % (0.0-0.4); Lymphocytes Absolute Auto 2.1 X10*3/uL (1.2-4.9); Lymphocytes Percent Auto 26.2 % (20-40); Mean Corpuscular Hemoglobin 27.4 pg (27.0-33.0); Mean Corpuscular Volume 88.5 fL (80-98); Mean Platelet Volume 9.9 fL (9.4-12.3); Monocytes Absolute Auto 0.8 X10*3/uL (0.1-1.2); Monocytes Percent Auto 10.2 % (2-11); Neutrophils Percent Auto 62.4 % (45-73); Platelet Count 241 X10*3/uL (160-400); Red Blood Count 4.01 X10*6/uL (4.20-5.50); Red Cell Distribution Width 13.3 % (11.0-16.0); White Blood Count 8.1 X10*3/uL (4.8-10.8)
[2020-07-06 07:26] LABS: Anion Gap 12 (12-20); Blood Urea Nitrogen 25 mg/dL (9-16); Calcium 8.3 mg/dL (8.4-10.2); Carbon Dioxide 30 mmol/L (22-29); Chloride 95 mmol/L (96-108); Creatinine Clr Calc Pharmacy 43.1; Estimated Glomerular Filt Rate 51; Glucose Fasting 178 mg/dL (60-99); Sodium 133 mmol/L (135-145)
--- NOTE | 2020-07-06 07:34 | PM.PNORT ---
Subjective Subjective Date of Service: 07/06/20 Interval history: POD1 s/p RT RTSA. Pt. resting comfortably in bed. Pain well managed overnight. No overnight events. Physical Exam Vital Signs: Vital Signs: Last Vital Signs Temp 97.6 F 07/06/20 03:30 Pulse 85 07/06/20 03:30 Resp 20 07/06/20 03:30 BP 110/56 L 07/06/20 03:30 Pulse Ox 91 L 07/06/20 03:30 Body Mass Index 27.1 Const: General: cooperative, healthy appearing and no acute distress Resp: Effort & Inspection: normal respiratory effort and able to speak in complete sentences Cardio: Rate: regular rate Peripheral pulses: Peripheral pulses 2+ throughout GI: Palpation (GI): Soft to palpation Skin: Lesions: no lesions Rashes: no rashes Extrem: Other: No ecchymosis, redness, or drainage. Dressing is clean, dry and intact. NVI. Progress Note: A&P Assessment and plan (1) S/p reverse total shoulder arthroplasty: Status: Acute Assessment and Plan: Continue pain mgmnt Begin ASA 81 mg po BID for dvt ppx begin PT for Dispo planning-Pending PT eval, pain mgmnt Fall Risk Details Current Medications: Current Medications Generic Name Dose Route Start Last Admin Trade Name Freq PRN Reason Stop Dose Admin Acetaminophen 650 mg 07/05/20 10:12 Acetaminophen 325 Mg Tablet PO Q6H PRN Pain, Mild (Pain Scale 1-3) Calcium Carbonate/Cholecalciferol 250 mg 07/06/20 09:00 Calcium + Vitamin D 250 Mg Tablet PO DAILY RAMANA Celecoxib 200 mg 07/05/20 21:00 07/05/20 21:42 Celecoxib 200 Mg Capsule PO 200 mg BID RAMANA Administration Famotidine 40 mg 07/05/20 21:00 07/05/20 21:42 Famotidine 20 Mg Tablet PO 40 mg BEDTIME RAMANA Administration Gabapentin 600 mg 07/05/20 21:00 07/05/20 21:43 Gabapentin 300 Mg Capsule PO 600 mg TID RAMANA Administration Glipizide 5 mg 07/05/20 15:15 07/05/20 17:03 Glipizide Xl 5 Mg Tab.Er.24 PO 5 mg DAILY RAMANA Administration Hydrochlorothiazide 25 mg 07/06/20 09:00 Hydrochlorothiazide 25 Mg Tablet PO DAILY RAMANA Hydromorphone HCl 0.25 mg 07/05/20 10:12 Hydromorphone Hcl 0.5 Mg/0.5 Ml Syringe IVPUSH Q4H PRN Pain, Severe (Pain Scale 7-10) Sodium Chloride 1,000 mls @ 80 mls/hr 07/05/20 10:15 07/06/20 05:12 IVCONT 80 mls/hr .[id number] [facility] Administration Cefazolin Sodium/Dextrose 2 gm in 50 mls @ 100 mls/hr 07/06/20 13:30 07/05/20 14:20 Ancef IV Infused POSTOP@1330 [facility] Infusion Insulin Human Lispro 0 unit 07/05/20 16:30 07/05/20 21:58 Insulin Lispro 100 Unit/Ml 3 Ml Vial SUBCUT Not Given QIDACHS [facility] Protocol Magnesium Oxide 400 mg 07/06/20 09:00 Magnesium Oxide 400 Mg Tablet PO DAILY [facility] Metoprolol Tartrate 100 mg 07/06/20 09:00 Metoprolol Tartrate 100 Mg Tablet PO DAILY [facility] Multivitamins/Vitamin C 1 tab 07/06/20 09:00 Multivitamin Tablet PO DAILY [facility] Omeprazole 20 mg 07/05/20 21:00 07/05/20 21:42 Omeprazole 20 Mg Capsule.Dr PO 20 mg BID [facility] Administration Ondansetron HCl 4 mg 07/05/20 10:12 Ondansetron Hcl 4 Mg/2 Ml Vial IVPUSH Q8H PRN Nausea and Vomiting Oxycodone HCl 5 mg 07/05/20 10:12 07/06/20 05:14 Oxycodone Hcl Immed Release 5 Mg Tablet PO 5 mg Q4H PRN Administration Pain, Moderate (Pain Scale 4-6 Ropinirole HCl 1 mg 07/05/20 18:00 07/06/20 05:20 Ropinirole Hcl 1 Mg Tablet PO Not Given 5XD [facility] Senna 17.2 mg 07/05/20 10:12 Sennosides 8.6 Mg Tablet PO BEDTIME PRN Constipation Sodium Chloride 3 ml 07/05/20 16:00 07/06/20 00:29 0.9 % Sodium Chloride Flush 3 Ml Syringe IVFLUSH Not Given QSHIFT [facility] Trazodone HCl 75 mg 07/05/20 21:00 01/19/21 21:43 Trazodone Hcl 25 Mg Halftab PO 75 mg BEDTIME RAMANA Administration Vitamin D 25 mcg 07/06/20 09:00 Cholecalciferol (Vitamin D3) 25 Mcg Tablet PO DAILY RAMANA Time Spent With Patient Time: Total time spent is greater than 50% in coordination of care (as documented) at patient's floor/unit and/or counseling patient: Time with patient: less than 15 minutes
[2020-07-06 07:41] VITALS: BP 105/57; PULSE 73; RESP 15; TEMP 36.1; O2SAT 95
[2020-07-06 08:08] LABS: Glucose, Whole Blood 148 mg/dL (60-115)
[2020-07-06] MEDS: Gabapentin 300 MG CAPSULE 600 MG PO (08:18)
[2020-07-06] MEDS: Celecoxib 200 MG CAPSULE PO (08:19)
[2020-07-06] MEDS: Aspirin Enteric Coated 81 MG TABLET.DR PO (08:19)
[2020-07-06] MEDS: Cholecalciferol (Vitamin D3) 25 MCG TABLET PO (08:19)
[2020-07-06] MEDS: Calcium + Vitamin D 250 MG TABLET PO (08:19)
[2020-07-06] MEDS: Magnesium Oxide 400 MG TABLET PO (08:19)
[2020-07-06] MEDS: Multivitamin TABLET 1 TAB PO (08:19)
[2020-07-06] MEDS: glipiZIDE XL 5 MG TAB.ER.24 PO (08:20)
[2020-07-06] MEDS: Omeprazole 20 MG CAPSULE.DR PO (08:20)
[2020-07-06] MEDS: hydroCHLOROthiazide 25 MG TABLET PO (08:21)
--- NOTE | 2020-07-06 09:00 | XR_ITS ---
EXAMINATION: XR SHOULDER, RIGHT CLINICAL INFORMATION: Status post right shoulder arthroplasty. COMPARISON: CT of the right shoulder dated 05/16/2020. TECHNIQUE: Portable AP upright radiographs of the right shoulder. FINDINGS: Postsurgical changes of reverse total shoulder arthroplasty. Hardware components are appropriately seated. No periprosthetic fracture. Hardware components are intact. Acromioclavicular joint is approximated with mild degenerative changes. Mild subacromial spurring noted. Soft tissue gas secondary to recent surgical procedure. Visualized lungs are clear. XR/XR shoulder RT min 2V IMPRESSION: Expected postoperative changes of reverse total right shoulder arthroplasty without hardware abnormality. No evidence of periprosthetic fracture. Mild acromioclavicular joint arthrosis. Small subacromial spurs.
[2020-07-06 09:30] VITALS: BP 105/57; PULSE 73; O2SAT 95
--- NOTE | 2020-07-06 10:48 | MHC.CM.PN ---
Addendum entered by Isabelle Arroyo RN 07/06/20 12:25: IMM 07/06/20 Original Note: CM REVIEWED EMR AND MET WITH PT, PT IS ALERT AND ORIENTED AND REPORTS SHE IS INDEPENDENT WITH ALL CARE AT HOME, PT DENIES DME OTHER THAN A FRONT WHEELED WALKER THAT PT DOES NOT USE, PT DENIES ANY HOME SERVICES OR NEED FOR HOME SERVICES., PT REPORTS SHE HAS TWO DAUGHTERS AND THEY WILL BE TAKING TURNS STAYING WITH PT AFTER DISCHARGE, PT DENIES NEED FOR VNA HOWEVER WOULD LIKE PHYSICAL THERAPY AFTER DISCHARGE. PT WOULD LIKE TO DISCHARGE HOME TODAY IF POSSIBLE. HCP [facility] [phone], PT DENIES ALTERNATE AND COPY WAS REQUESTED. PCP: LOTUS ORELL[facility]ARM[facility]Y: [address]
[2020-07-06 12:00] LABS: Glucose, Whole Blood 178 mg/dL (60-115)
--- NOTE | 2020-07-06 12:07 | P.DS_ITS ---
DS: Providers Provider Date of Service: 07/06/20 Date of admission: 07/05/20 08:03 Primary care physician: Rudy Hinkle MD Consults: 07/05/20 10:17 Consult to Hospitalist Routine Consulting Provider: Hospitalist Reason for consultation: medical management/DM DS: Diagnosis Discharge Diagnosis (1) S/p reverse total shoulder arthroplasty: Status: Acute Problem details: This is an 80-year-old female who presented to the office with ongoing right shoulder pain. She was found have osteoarthritis of the right shoulder which affected her daily activities. After failing all conservative measures she had agreed to move forward with reverse total shoulder arthroplasty. DS: Medications Discharge Medications Home Medications: Home Medications Medication Instructions Recorded Confirmed acebutolol 200 mg capsule 200 mg PO QAM 03/16/20 06/20/20 chlorthalidone 25 mg tablet 25 mg PO QAM 03/16/20 06/20/20 famotidine 40 mg tablet 40 mg PO BEDTIME 03/16/20 06/20/20 gabapentin 300 mg capsule 600 mg PO TID 03/16/20 06/20/20 glipizide 5 mg tablet, extended 5 mg PO QAM 03/16/20 06/20/20 release 24 hr metformin 500 mg tablet,extended 500 mg PO QAM 03/16/20 07/05/20 release 24 hr omeprazole 20 mg capsule,delayed 20 mg PO BID 03/16/20 06/20/20 release ropinirole 1 mg tablet 1 mg PO 5XD 03/16/20 06/20/20 trazodone 50 mg tablet 75 mg PO BEDTIME 03/16/20 06/20/20 cholecalciferol (vitamin D3) 25 mcg PO DAILY 06/20/20 06/20/20 [Vitamin D3] magnesium 400 mg PO DAILY 06/20/20 06/20/20 multivitamin-iron (hematinic) 1 tab PO DAILY 06/20/20 06/20/20 [Spectravite] triamcinolone acetonide 1 appl TOPICAL BID PRN 06/20/20 06/20/20 calcium carbonate-vitamin D3 1 tab PO DAILY 07/05/20 07/05/20 [Calcium + D] metformin 1,000 mg PO QPM 07/05/20 07/05/20 Previous Rx's Medication Instructions Recorded oxycodone 5 mg PO Q4H PRN 7 Days #42 tab 07/06/20 DS: Summary Hospital Course Hospital Course: The patient underwent a successful (), was transferred to PACU and then to the floor to recover. During their stay, their vitals were stable, afebrile at 97.0. Labs were unremarkable, H/H11.0/35.5. POD 1 she was started on ASA 81 mg tabs po bid for DVT ppx, they also received PT/OT services twice a day. Prior to discharge,dressing was clean dry and intact,and the plan was to be discharged home with VNA services,. Time Spent with Patient Time attestation: Total time spent providing and/or coordinating discharge services: Discharge coordination time: Less than 30 minutes Physical Exam Vital Signs: Vital Signs: Last Vital Signs Temp 97.0 F 07/06/20 07:41 Pulse 73 07/06/20 09:30 Resp 15 07/06/20 07:41 BP 105/57 L 07/06/20 09:30 Pulse Ox 95 07/06/20 09:30 Body Mass Index 27.1 Extrem: Other: Right shoulder bandage clean, dry and intact. No erythema, mild swelling, anterior deltoid senstaion intact. Radial, median and ulnar nerve function intact DS: Data Data Completed and Pending Pending studies at discharge: Pending at discharge 07/05/20 09:46 Surgical [PTH] Routine Labs on day of discharge: Laboratory Tests 06/20/20 06/20/20 06/20/20 12:45 13:25 13:25 WBC 8.7 RBC 4.60 Hgb 12.9 Hct 41.4 MCV 90.0 MCH 28.0 MCHC 31.2 RDW 13.2 Plt Count 305 MPV 10.2 Immature Gran % (Auto) 0.3 Neut % (Auto) 71.4 Lymph % (Auto) 20.4 [place] % (Auto) 6.0 Eos % (Auto) 1.6 Baso % (Auto) 0.3 Lymph # (Auto) 1.8 [place] # (Auto) 0.5 Eos # (Auto) 0.1 Baso # (Auto) 0.0 Abs Immat Gran (auto) 0.03 Absolute Neuts (auto) 6.2 Absolute Nucleated RBC 0.000 Nucleated RBC % (auto) 0.0 Sodium 139 Potassium 4.2 Chloride 98 Carbon Dioxide 26 Anion Gap 19 BUN 27 H Creatinine 1.13 Estim Creat Clear Calc 39.3 Estimated GFR 46 POC Glucose Fasting Glucose Calcium Nasal Screen MRSA (PCR) NEGATIVE Nasal S. aureus Screen POSITIVE A Nasal MRSA/S.aureus Interp SEE NOTE COVID-19 ([facility]IO) COVID-19 [facility] Com Blood Type Antibody Screen 06/20/20 07/05/20 07/05/20 13:25 06:00 06:23 WBC RBC Hgb Hct MCV MCH MCHC RDW Plt Count MPV Immature Gran % (Auto) Neut % (Auto) Lymph % (Auto) [place] % (Auto) Eos % (Auto) Baso % (Auto) Lymph # (Auto) [place] # (Auto) Eos # (Auto) Baso # (Auto) Abs Immat Gran (auto) Absolute Neuts (auto) Absolute Nucleated RBC Nucleated RBC % (auto) Sodium Potassium Chloride Carbon Dioxide Anion Gap BUN Creatinine Estim Creat Clear Calc Estimated GFR POC Glucose 179 H Fasting Glucose Calcium Nasal Screen MRSA (PCR) Nasal S. aureus Screen Nasal MRSA/S.aureus Interp COVID-19 (ELIGIO) Negative COVID- [facility] See Note Blood Type A Positive Antibody Screen NEGATIVE 07/05/20 07/05/20 07/06/20 16:48 21:39 06:02 WBC 8.1 RBC 4.01 L Hgb 11.0 L Hct 35.5 L MCV 88.5 MCH 27.4 MCHC 31.0 RDW 13.3 Plt Count 241 MPV 9.9 Immature Gran % (Auto) 0.4 Neut % (Auto) 62.4 Lymph % (Auto) 26.2 [place] % (Auto) 10.2 Eos % (Auto) 0.6 Baso % (Auto) 0.2 Lymph # (Auto) 2.1 [place] # (Auto) 0.8 Eos # (Auto) 0.1 Baso # (Auto) 0.0 Abs Immat Gran (auto) 0.03 Absolute Neuts (auto) 5.0 Absolute Nucleated RBC 0.000 Nucleated RBC % (auto) 0.0 Sodium Potassium Chloride Carbon Dioxide Anion Gap BUN Creatinine Estim Creat Clear Calc Estimated GFR POC Glucose 214 H 134 H Fasting Glucose Calcium Nasal Screen MRSA (PCR) Nasal S. aureus Screen Nasal MRSA/S.aureus Interp COVID-19 ([facility]IGIO) COVID-19 [facility] Com Blood Type Antibody Screen 07/06/20 07/06/20 07/06/20 06:02 07:38 11:39 WBC RBC Hgb Hct MCV MCH MCHC RDW Plt Count MPV Immature Gran % (Auto) Neut % (Auto) Lymph % (Auto) [place] % (Auto) Eos % (Auto) Baso % (Auto) Lymph # (Auto) [place] # (Auto) Eos # (Auto) Baso # (Auto) Abs Immat Gran (auto) Absolute Neuts (auto) Absolute Nucleated RBC Nucleated RBC % (auto) Sodium 133 L Potassium 4.0 Chloride 95 L Carbon Dioxide 30 H Anion Gap 12 BUN 25 H Creatinine 1.03 Estim Creat Clear Calc 43.1 Estimated GFR 51 POC Glucose 148 H 178 H Fasting Glucose 178 H Calcium 8.3 L Nasal Screen MRSA (PCR) Nasal S. aureus Screen Nasal MRSA/S.aureus Interp COVID-19 ([facility]IGIO) COVID-19 Clin Com Blood Type Antibody Screen Discharge Plan Discharge Patient Disposition: Home, Self-Care Referrals: Claudia Marrero PA-C [Physician Microbiology Lab Assistant] - (07/21/20 12:30 [facility] Claudia Marrero PA-C) Discharge Medications: New oxycodone 5 mg Tablet 5 mg PO Q4H PRN (Reason: Pain, Moderate (Pain Scale 4-6) 7 Days Qty: 42 RF: 0 acetaminophen 325 mg Tablet 650 mg PO Q6H PRN (Reason: Pain, Mild (Pain Scale 1-3)) 30 Days Qty: 240 RF: 0 aspirin 81 mg Tablet,Delayed Release (Dr/Ec) 81 mg PO BID 15 Days Qty: 30 RF: 0 sennosides [Senna Lax] 8.6 mg Tablet 17.2 mg PO BEDTIME PRN (Reason: Constipation) 14 Days Qty: 28 RF: 0 Continued triamcinolone acetonide 0.1 % Cream 1 appl TOPICAL BID PRN (Reason: Itching) RF: 0 cholecalciferol (vitamin D3) [Vitamin D3] 25 mcg (1,000 unit) Capsule 25 mcg PO DAILY RF: 0 magnesium 200 mg Tablet 400 mg PO DAILY RF: 0 Spectravite Tablet 1 tab PO DAILY RF: 0 metformin 500 mg tablet extended release 24 hr 1,000 mg PO QPM RF: 0 calcium carbonate-vitamin D3 [Calcium + D] 600 mg(1,500mg) -200 unit Tablet 1 tab PO DAILY RF: 0 acebutolol 200 mg capsule 200 mg PO QAM RF: 0 ropinirole 1 mg tablet 1 mg PO 5XD RF: 0 famotidine 40 mg tablet 40 mg PO BEDTIME RF: 0 trazodone 50 mg tablet 75 mg PO BEDTIME RF: 0 omeprazole 20 mg capsule,delayed release(DR/EC) 20 mg PO BID RF: 0 glipizide 5 mg tablet extended release 24hr 5 mg PO QAM RF: 0 chlorthalidone 25 mg tablet 25 mg PO QAM RF: 0 gabapentin 300 mg capsule 600 mg PO TID RF: 0 metformin 500 mg tablet extended release 24 hr 500 mg PO QAM RF: 0 Discharge Orders: Discharge Order (Routine); Ordered 07/06/20 Ordered By: Claudia Marrero Diet: regular diet Activity on Discharge: sling Activity Restrictions/Additional Instructions: * Wear sling at all times unless for hygiene and exercises * Pendelums three times a day * Physical Therapy/ Occupation therapy * ---No raising Right arm above 30 degrees, No ER/IR beyond 30 degrees, no Abduction beyond 90 degrees * ---No heavy lifting * ---Elbow and wrist ROM ok * Aspirin 81mg twice a day * Follow up with orthopedics in 2 weeks Visit Report Forms: Patient Portal Discharge page Care Plan Goals: Restore functino of right shoulder Health Concerns: None Plan of Treatment: Physical Therapy Pain management DVT prophylaxis
--- NOTE | 2020-07-06 12:16 | MHC.CM.PN ---
CM MADE REFERRAL FOR [facility] PER FAMILY REQUEST. PT DISCHARGING TODAY WITH VNA AND HOME PT, DAUGHTER TO TRANSPORT.
[2020-07-06] MEDS: Insulin Lispro 100 UNIT/ML 3 ML VIAL SUBCUT (12:43)
--- NOTE | 2020-07-06 13:03 | P.F2F_ITS ---
Service Date Service Date: 07/06/20 Reasons for Services Reason for detention: postoperative assessment and/or care Reason for physical therapy: home safety and mobility, restore joint function, gait/transfer training and ADL training Reason for occupational therapy: home safety and mobility, therapeutic exercises, restore joint function and ADL training Overseeing Care: Brady Zazueta Homebound: Leaving the home is medically contraindicated at this time without the asist of a device and/or another person due th the listed conditions above and below. Reason homebound: poor balance / fall risk and unable to drive Homebound supporting statement: Pt. is considered home bound due to recent surgery. Unable to drive, poor balance, poor gait mechanics. Certification: Based on the above findings, I certify that this patient is confined to the home and needs intermittent detention care, physical therapy and/or speech therapy, or continues to need occupational therapy. The patient is under my care, and I have initiated the establishment of the plan of care. The patient will be followed by a physician who will periodically review the plan of care.
--- NOTE | 2020-07-06 13:52 | MHC.INPTTRAN ---
Sling on Right arm. CMS to fingers good. Ambulates with supervision. Voiding, Moses diet. Pain managed with PO meds. Lungs clear. Cont using incen spir. Thanks.
[2020-07-06 14:03] VITALS: BP 105/57; PULSE 73; O2SAT 95
--- NOTE | 2020-07-06 14:03 | HO.POSTANES ---
Post Anesthesia Evaluation Post Anesthesia Evaluation Vital Signs: Vital Signs Temp Pulse Resp BP Pulse Ox 07/06/20 09:30 73 105/57 L 95 07/06/20 07:41 97.0 F 73 15 105/57 L 95 07/06/20 03:30 97.6 F 85 20 110/56 L 91 L Anesthesia: Nerve Block and General Mental Status: Awake Pain Control: Satisfactory Nausea/Vomiting: None Hydration: Adequate Anesthesia-Related Issues: No Anes. Related Issues
--- NOTE | 2020-07-06 14:18 | HO.PM.IMPN ---
Subjective Subjective Date of Service: 07/06/20 Interval History: dm Review of Systems Patient denies any chest pain shortness of breath or abdominal pain or fever or chills. Says pain is also improving. Physical Exam Vital Signs: Vital Signs: Last Vital Signs Temp 97.0 F 07/06/20 07:41 Pulse 73 07/06/20 14:03 Resp 15 07/06/20 07:41 BP 105/57 L 07/06/20 14:03 Pulse Ox 95 07/06/20 14:03 Body Mass Index 27.1 Physical exam: Cvs: rrr, [id number] , no murmur res: clear to auscultation ,no rhonchii or wheezing abd: no rebound or guarding ,nt, bs present. ext pulses present , no cyanosis , right arm sling neuro: axo3 , nonfocal. Objective Data Current Medications Generic Name Dose Route Start Last Admin Trade Name Freq PRN Reason Stop Dose Admin Acetaminophen 650 mg 07/05/20 10:12 Acetaminophen 325 Mg Tablet PO Q6H PRN Pain, Mild (Pain Scale 1-3) Aspirin 81 mg 07/06/20 09:00 07/06/20 08:19 Aspirin Enteric Coated 81 Mg Tablet. PO 81 mg BID RAMANA Administration Calcium Carbonate/Cholecalciferol 250 mg 07/06/20 09:00 07/06/20 08:19 Calcium + Vitamin D 250 Mg Tablet PO 250 mg DAILY RAMANA Administration Celecoxib 200 mg 07/05/20 21:00 07/06/20 08:19 Celecoxib 200 Mg Capsule PO 200 mg BID RAMANA Administration Famotidine 40 mg 07/05/20 21:00 07/05/20 21:42 Famotidine 20 Mg Tablet PO 40 mg BEDTIME RAMANA Administration Gabapentin 600 mg 07/05/20 21:00 07/06/20 08:18 Gabapentin 300 Mg Capsule PO 600 mg TID RAMANA Administration Glipizide 5 mg 07/05/20 15:15 07/06/20 08:20 Glipizide Xl 5 Mg Tab.Er.24 PO 5 mg DAILY RAMANA Administration Hydrochlorothiazide 25 mg 07/06/20 09:00 07/06/20 08:21 Hydrochlorothiazide 25 Mg Tablet PO 25 mg DAILY RAMANA Administration Hydromorphone HCl 0.25 mg 07/05/20 10:12 Hydromorphone Hcl 0.5 Mg/0.5 Ml Syringe IVPUSH Q4H PRN Pain, Severe (Pain Scale 7-10) Sodium Chloride 1,000 mls @ 80 mls/hr 07/05/20 10:15 07/06/20 05:12 IVCONT 80 mls/hr .[id number] RAMANA Administration Cefazolin Sodium/Dextrose 2 gm in 50 mls @ 100 mls/hr 07/06/20 13:30 07/06/20 12:50 Ancef IV Not Given POSTOP@1330 [facility] Insulin Human Lispro 0 unit 07/05/20 16:30 07/06/20 12:43 Insulin Lispro 100 Unit/Ml 3 Ml Vial SUBCUT 2 unit QIDACHS [facility] Administration Protocol Magnesium Oxide 400 mg 07/06/20 09:00 07/06/20 08:19 Magnesium Oxide 400 Mg Tablet PO 400 mg DAILY [facility] Administration Metoprolol Tartrate 100 mg 07/06/20 09:00 07/06/20 09:43 Metoprolol Tartrate 100 Mg Tablet PO Not Given DAILY [facility] Multivitamins/Vitamin C 1 tab 07/06/20 09:00 07/06/20 08:19 Multivitamin Tablet PO 1 tab DAILY [facility] Administration Omeprazole 20 mg 07/05/20 21:00 07/06/20 08:20 Omeprazole 20 Mg Capsule.Dr PO 20 mg BID [facility] Administration Ondansetron HCl 4 mg 07/05/20 10:12 Ondansetron Hcl 4 Mg/2 Ml Vial IVPUSH Q8H PRN Nausea and Vomiting Oxycodone HCl 5 mg 07/05/20 10:12 07/06/20 11:31 Oxycodone Hcl Immed Release 5 Mg Tablet PO 5 mg Q4H PRN Administration Pain, Moderate (Pain Scale 4-6 Ropinirole HCl 1 mg 07/05/20 18:00 07/06/20 09:43 Ropinirole Hcl 1 Mg Tablet PO Not Given 5XD [facility] Senna 17.2 mg 07/05/20 10:12 Sennosides 8.6 Mg Tablet PO BEDTIME PRN Constipation Sodium Chloride 3 ml 07/05/20 16:00 07/06/20 08:20 0.9 % Sodium Chloride Flush 3 Ml Syringe IVFLUSH Not Given QSHIFT [facility] Trazodone HCl 75 mg 07/05/20 21:00 07/05/20 21:43 Trazodone Hcl 25 Mg Halftab PO 75 mg BEDTIME RAMANA Administration Vitamin D 25 mcg 07/06/20 09:00 07/06/20 08:19 Cholecalciferol (Vitamin D3) 25 Mcg Tablet PO 25 mcg DAILY RAMANA Administration Labs CBC & Chem 7: 07/06/20 06:02 07/06/20 06:02 Assessment and Plan (1) Right shoulder pain: Status: Acute Assessment and Plan: 80-year-old woman admitted by Orthopedic surgery team and is status post right shoulder arthroplasty. 1.Right shoulder arthroplasty. Management as per surgical team. Pain management. 2.Diabetes mellitus: fs 140-200 sliding scale, ADA diet, glipizise 3.Hypertention. continue cholorothalidione. 4.GERD. PPI. Will sign off please call us with any questions.
--- NOTE | 2020-07-06 14:28 | MHC.CM.PN ---
PT DISCHARGING HOME WITH [facility] FOR ALF, HOME OT AND PT. DAUGHTER TO TRANSPORT.
== END 2020-07-06 15:22 | disposition home health service (06) | DRG 483 ==
LOC: HO.SSSA 08:10 → HO.S3 12:40
PROVIDERS: Physician Assistant; Admitting Provider Orthopaedic Surgery; PCP Internal Medicine; Visit Provider Orthopaedic Surgery
PROC: 0RRJ00Z Replacement of Right Shoulder Joint with Reverse Ball and Socket Synthetic Substitute, Open Approach (ICD-10-PCS; principal; 2020-07-05 07:30)
DX: M12.811 Other specific arthropathies, not elsewhere classified, right shoulder (principal); I10 Essential (primary) hypertension; E11.9 Type 2 diabetes mellitus without complications; K21.9 Gastro-esophageal reflux disease without esophagitis; Z20.822 Contact with and (suspected) exposure to COVID-19; Z87.891 Personal history of nicotine dependence; Z79.84 Long term (current) use of oral hypoglycemic drugs; Z79.899 Other long term (current) drug therapy
CPT/HCPCS: 36415; 73030; 80048; 80051; 82565; 82947; 84520; 85025; 86850; 86900; 86901; 87635; 87640; 87641; 88304; 88305; 88311; 93005; 97116; 97162; C1713; C1776; J0690; J2250; J2370; J2405; J3010

== ENCOUNTER 2020-07-21 12:14 | Outpatient (REF) | payer MEDICARE, OTHER, SELFPAY ==
--- NOTE | ~2020-07-21 | XR_ITS ---
EXAMINATION: XR SHOULDER, LEFT XR SHOULDER, RIGHT CLINICAL INFORMATION: Shoulder pain COMPARISON: 07/06/2020 and 03/26/2019 TECHNIQUE: 2 views of the left shoulder. 2 views of the right shoulder. FINDINGS: Left shoulder: There is a reverse total left shoulder arthroplasty. The humeral component articulates appropriately with the glenoid component. Redemonstration of lucency adjacent to the glenoid fixation screws. This is similar to previous imaging. The acromioclavicular joint is intact. The visualized lung is clear. Right shoulder: There is a reverse total right shoulder arthroplasty. The humeral component articulates appropriately with the glenoid component. No periprosthetic lucency or fracture. Unchanged alignment of the acromioclavicular joint. The visualized lung is clear. The visualized ribs are intact. XR/XR shoulder RT min 2V IMPRESSION: Bilateral reverse total shoulder arthroplasties unchanged in alignment without evidence of failure. Lucency adjacent to the glenoid component screws at the left shoulder is unchanged.
--- NOTE | ~2020-07-21 | XR_ITS ---
EXAMINATION: XR SHOULDER, LEFT XR SHOULDER, RIGHT CLINICAL INFORMATION: Shoulder pain COMPARISON: 07/06/2020 and 03/26/2019 TECHNIQUE: 2 views of the left shoulder. 2 views of the right shoulder. FINDINGS: Left shoulder: There is a reverse total left shoulder arthroplasty. The humeral component articulates appropriately with the glenoid component. Redemonstration of lucency adjacent to the glenoid fixation screws. This is similar to previous imaging. The acromioclavicular joint is intact. The visualized lung is clear. Right shoulder: There is a reverse total right shoulder arthroplasty. The humeral component articulates appropriately with the glenoid component. No periprosthetic lucency or fracture. Unchanged alignment of the acromioclavicular joint. The visualized lung is clear. The visualized ribs are intact. XR/XR shoulder LT min 2V IMPRESSION: Bilateral reverse total shoulder arthroplasties unchanged in alignment without evidence of failure. Lucency adjacent to the glenoid component screws at the left shoulder is unchanged.
== END 2020-07-21 12:15 | disposition home or self-care (01) ==
LOC: HO.HOSX 12:14
PROVIDERS: PCP Internal Medicine; Visit Provider Physician Assistant
DX: Z47.1 Aftercare following joint replacement surgery (principal); Z96.611 Presence of right artificial shoulder joint
CPT/HCPCS: 73030; 99212

== ENCOUNTER → 2020-08-18 09:59 | Outpatient (BNVA) | payer MEDICARE, OTHER, SELFPAY | PROVIDERS: PCP Internal Medicine; Visit Provider Orthopaedic Surgery | DX: Z47.1 Aftercare following joint replacement surgery (principal); Z96.611 Presence of right artificial shoulder joint | CPT/HCPCS: 99212 ==

== ENCOUNTER 2020-09-14 10:00 | Outpatient (RCR) | payer MEDICARE, OTHER, SELFPAY ==
--- NOTE | 2020-08-23 14:12 | MHC.PT.EP ---
[facility] [place] Office [place] Office [place] Office [address] Yuridia Carpenter [address] [phone] F: [phone] F: [phone] F: [phone] F: [phone] Physical Therapy Plan of Care Date of Evaluation: 08/22/20 Date of Surgery: 07/05/20 Diagnosis: Reverse TSA Assessment: Patient is an 80 year old R handed female who presents with s/s consistent with Reverse TSA. She has had a L Reverse TSA in the past as well and is happy with the final product. She does not currently work but likes to stay busy with tasks and activities with friends. Patient past medical history includes breast cancer, DM, and L TSA. Current impairments include pain, posture, ROM, strength, safety, independence, activity tolerance and functional mobility. Functional limitations include decreased ability to sleep, reach, dress, lift, carry, push, pull, and perform weight bearing activities.. Patient is motivated with good rehab potential. Skilled PT will address impairments and functional limitations in order to achieve goals. Frequency and Duration: The patient will be seen 2x/week for 6 weeks Short Term Goals: I with HEP - 2 weeks AROM flexion to 90, abduction to 90 - 3 weeks Able to wash hair - 3 weeks Care Home Goals: SPADI 10/130 or better - 5 weeks AROM flexion to 120, abd to 120 - 5 weeks Treatment Plan: Modalities to reduce pain, spasms and effusion. Manual therapy to restore motion and function. Therapeutic exercise to improve strength and flexibility. Neuromuscular re-education for posture and balance. Therapeutic activities to return to functional activities of daily living. Electronically signed by: Dudley Barr, PT Please sign and return to therapist. Thank you for your referral.
--- NOTE | 2020-10-28 13:50 | MHC.PT.DC ---
[facility] [place] Office [place] Office [place] Office [address] Yuridia Carpenter [address] [facility] [phone] F: [phone] F: [phone] F: [phone] F: [phone] Physical Therapy Discharge Report Diagnosis: Reverse TSA Date of Surgery: 07/05/20 Date of Evaluation: 08/22/20 Date of Discharge: 09/18/20 Treatments to Date: 6 Cancellations to Date: 0 No Shows to Date: 0 Discharge Status: Achieved Goals Improved Function Independent with HEP Discharge Summary: Pt progressed well over the course of skilled PT making progress on impairments and functional limitations resulting in an improved quality of life. Pt is I with HEP and appropriate to d/c to HEP at this time. Electronically signed by: Dudley Barr, PT Please sign and return to therapist. Thank you for your referral.
== END 2020-11-05 10:48 | disposition home or self-care (01) ==
LOC: HO.PTCHIC 10:00
PROVIDERS: PCP Internal Medicine; Visit Provider Physician Assistant
DX: Z96.619 Presence of unspecified artificial shoulder joint (principal)
CPT/HCPCS: 97110; 97140; 97162

== ENCOUNTER 2021-08-21 08:33 | Outpatient (REF) | payer MEDICARE, OTHER, SELFPAY | END 2021-08-21 08:34 | disposition home or self-care (01) | LOC: HO.HOSX 08:33 | PROVIDERS: Visit Provider Orthopaedic Surgery | DX: Z13.89 Encounter for screening for other disorder (principal) ==